=== PATIENT | male | born 1975 | race Caucasian/White ===

== ENCOUNTER 2020-08-16 09:31 | Inpatient (IN) ==
[2020-08-16] MEDS ORDERED: DEXTROSE 50% 25 GM/50 ML VIAL IV PRN (12:17)
[2020-08-16] MEDS ORDERED: GLUCAGON 1 MG VIAL IM PRN (12:17)
[2020-08-16] MEDS ORDERED: hydrALAZINE 20 MG/1 ML VIAL IV PRN (12:52)
[2020-08-16 13:16] LABS: Basophils % 0.6 % (0.0-0.8); Hematocrit 28.1 VOL% (42.0-52.0); Immature Granulocytes % 0.8 %; Immature Granulocytes Absolute 0.05 #; Lymphocytes # 1.5 10*3/uL (1.4-4.0); Lymphocytes % 22.2 % (21.2-54.2); Mean Corpuscular HGB Conc 28.5 GM/DL (32-36); Mean Corpuscular Volume 68.5 FL (87-102); Monocytes % 5.7 % (1.7-12.7); Neutrophils % 70.7 % (38.7-73.9); Platelet Count 70 T/CUMM (130-400); Red Cell Distribution Width 24.1 % (9.3-17.3); White Blood Count 6.5 T/CUMM (4-12)
[2020-08-16] MEDS: LORazepam 2 MG/1 ML VIAL IV PRN ×3 (13:16→20:55)
[2020-08-16 13:49] LABS: Albumin 3.2 G/DL (3.4-5.0); Bilirubin,Total 0.5 MG/DL (0.2-1.0); Calcium 7.4 MG/DL (8.5-10.1); Osmolality,Calculated 282.4 MOS/KG (273-304); Total Protein 6.5 G/DL (6.4-8.2)
[2020-08-16 13:52] LABS: PT Patient Result 11.4 SECS (9.8-11.9); Partial Thromboplastin Time 26.7 SECS (23.9-33.8)
[2020-08-16] MEDS ORDERED: THIAMINE INJ 100 MG, FOLIC ACID INJ 1 MG, MAGNESIUM SULF INJ 2 GM, MULTIVITAMIN INJ 10 ... IV ONE (14:01)
[2020-08-16 14:04] LABS: Risk Ratio 3.71; Thyroid Stimulating Hormone 0.541 uIU/ml (0.358-3.74); VLDL CHOLESTEROL 20.8 MG/DL
[2020-08-16] MEDS: chlordiazePOXIDE 25 MG CAPSULE PO SCH ×2 (14:11→18:25)
[2020-08-16 14:12] LABS: Folate 3.12 NG/ML (5.38-24.0)
[2020-08-16] MEDS: HYDROmorphone 2 MG/1 ML VIAL IV PRN (15:04)
[2020-08-16] MEDS: POTASSIUM CHLORIDE RIDER 10 MEQ in PREMIX 1 EACH IV PRN ×2 (15:05→21:48)
[2020-08-16] MEDS: ONDANSETRON 4 MG/2 ML VIAL IV PRN ×2 (15:05→20:55)
[2020-08-16] MEDS: PANTOPRAZOLE 40 MG VIAL IV SCH ×2 (15:05→20:35)
[2020-08-16] MEDS: SODIUM CHLORIDE 0.9% 1,000 ML IV SCH ×2 (16:45→20:48)
[2020-08-16 17:08] LABS: Barbiturates Screen,Urine Negative (Negative); Benzodiazepines Screen,Urine Negative (Negative); Cannabinoid Screen,Urine Negative (Negative); Opiate Screen,Urine Negative (Negative); Phencyclidine Screen,Urine Negative (Negative)
[2020-08-16 18:39] LABS: Hematocrit 26.2 VOL% (42.0-52.0); Hemoglobin 7.5 GM/DL (14.0-18.0)
[2020-08-17 01:16] LABS: Hemoglobin 7.2 GM/DL (14.0-18.0)
[2020-08-17] MEDS: LORazepam 2 MG/1 ML VIAL IV PRN ×3 (01:24→13:45)
[2020-08-17 01:26] LABS: Albumin 3.1 G/DL (3.4-5.0); Bilirubin,Total 0.7 MG/DL (0.2-1.0); Osmolality,Calculated 273.8 MOS/KG (273-304); Potassium 3.3 MMOL/L (3.5-5.1); Total Protein 6.1 G/DL (6.4-8.2)
[2020-08-17] MEDS: chlordiazePOXIDE 25 MG CAPSULE PO SCH ×4 (01:34→20:43)
[2020-08-17] MEDS: POTASSIUM CHLORIDE RIDER 10 MEQ in PREMIX 1 EACH IV PRN (01:46)
[2020-08-17] MEDS: ONDANSETRON 4 MG/2 ML VIAL IV PRN ×2 (01:46→08:55)
[2020-08-17 07:32] LABS: Basophils % 0.6 % (0.0-0.8); Eosinophils % 0.2 % (0.00-10.9); Hematocrit 27.2 VOL% (42.0-52.0); Hemoglobin 7.8 GM/DL (14.0-18.0); Immature Granulocytes Absolute 0.05 #; Lymphocytes # 0.9 10*3/uL (1.4-4.0); Mean Corpuscular HGB Conc 28.7 GM/DL (32-36); Monocytes % 7.6 % (1.7-12.7); NRBC # 0.02 10*3/uL; Neutrophils % 71.6 % (38.7-73.9); Red Cell Distribution Width 24.6 % (9.3-17.3); White Blood Count 4.8 T/CUMM (4-12)
[2020-08-17 07:33] LABS: Platelet Count 67 T/CUMM (130-400)
[2020-08-17 07:48] LABS: Hypochromasia 2+; Microcytosis 1+; Platelet Estimate Decreased
[2020-08-17] MEDS ORDERED: POTASSIUM CHLORIDE 20 MEQ TABLET PO ONE (08:00)
[2020-08-17 08:34] LABS: Hepatitis B Core IgM Quant 0.08 Index; Hepatitis B Surface Ag Quant < 0.10 Index; Hepatitis B Surface Ag Result Non-Reactive (NonReactive); Hepatitis C Virus Ab Quant 0.11 Index; Hepatitis C Virus Ab Result Non-Reactive (NonReactive)
[2020-08-17] MEDS: FOLIC ACID 1 MG TABLET PO SCH (08:54)
[2020-08-17] MEDS: SODIUM CHLORIDE 0.9% 1,000 ML IV SCH (08:54)
[2020-08-17] MEDS: MULTIVITAMIN (CENTRUM) TABLET PO SCH (08:54)
[2020-08-17] MEDS: PANTOPRAZOLE 40 MG VIAL IV SCH ×2 (08:55→20:43)
[2020-08-17] MEDS: THIAMINE 200 MG/2 ML VIAL IV SCH (08:55)
[2020-08-17] MEDS: SODIUM CHLOR 0.9% KCL 40 MEQ 40 MEQ/1,000 ML BAG IV SCH ×2 (15:33→23:41)
[2020-08-17] MEDS: HYDROmorphone 2 MG/1 ML VIAL IV PRN (20:43)
[2020-08-18] MEDS: HYDROmorphone 2 MG/1 ML VIAL IV PRN ×3 (00:12→09:09)
[2020-08-18] MEDS ORDERED: LORazepam 2 MG/1 ML VIAL ONE (02:08)
[2020-08-18] MEDS: LORazepam 2 MG/1 ML VIAL IV PRN (02:27)
[2020-08-18] MEDS: ONDANSETRON 4 MG/2 ML VIAL IV PRN (02:27)
[2020-08-18] MEDS: chlordiazePOXIDE 25 MG CAPSULE PO SCH (05:04)
[2020-08-18 06:05] LABS: Basophils % 0.5 % (0.0-0.8); Eosinophils # 0.1 10*3/uL (0.0-0.87); Eosinophils % 1.9 % (0.00-10.9); Hematocrit 27.6 VOL% (42.0-52.0); Hemoglobin 7.6 GM/DL (14.0-18.0); Immature Granulocytes % 1.4 %; Immature Granulocytes Absolute 0.06 #; Lymphocytes # 0.9 10*3/uL (1.4-4.0); Lymphocytes % 21.5 % (21.2-54.2); Mean Corpuscular HGB Conc 27.5 GM/DL (32-36); Mean Corpuscular Volume 70.2 FL (87-102); Monocytes % 9.1 % (1.7-12.7); NRBC # 0.02 10*3/uL; Neutrophils % 65.6 % (38.7-73.9); Platelet Count 80 T/CUMM (130-400); Red Blood Count 3.93 MC/CUMM (3.8-5.5); Red Cell Distribution Width 24.5 % (9.3-17.3); White Blood Count 4.3 T/CUMM (4-12)
[2020-08-18 06:13] LABS: Hypochromasia 2+; Microcytosis 1+; Platelet Estimate Decreased
[2020-08-18] MEDS: SODIUM CHLOR 0.9% KCL 40 MEQ 40 MEQ/1,000 ML BAG IV SCH (06:14)
[2020-08-18] MEDS ORDERED: LACTATED RINGERS 1,000 ML IV SCH (06:30)
[2020-08-18 07:43] LABS: Albumin 3.1 G/DL (3.4-5.0); Calcium 8.5 MG/DL (8.5-10.1); Potassium 4.1 MMOL/L (3.5-5.1)
[2020-08-18] MEDS ORDERED: LIDOCAINE 2% 5 ML VIAL ONE ×2 (07:48)
[2020-08-18] MEDS ORDERED: propofoL 200 MG/20 ML VIAL IV ONE ×2 (07:48→08:05)
[2020-08-18 08:39] VITALS: BP 148/100
[2020-08-18] MEDS: PANTOPRAZOLE 40 MG VIAL IV SCH (09:00)
[2020-08-18] MEDS: FOLIC ACID 1 MG TABLET PO SCH (09:00)
[2020-08-18] MEDS: THIAMINE 200 MG/2 ML VIAL IV SCH (09:00)
[2020-08-18] MEDS: MULTIVITAMIN (CENTRUM) TABLET PO SCH (09:00)
[2020-08-18] MEDS ORDERED: SODIUM CHLOR 0.9% KCL 20 MEQ 20 MEQ/1,000 ML BAG IV SCH (09:30)
== END 2020-08-18 13:40 | disposition home or self-care (01) | DRG 381 ==
LOC: N.3E 11:50 → SUATTDRO 11:50
PROVIDERS: ADMIT Internal Medicine; ATTEND Internal Medicine Geriatric Medicine